=== PATIENT | female | born 1960 | race African-American/Black ===

== ENCOUNTER → 2016-10-04 | Outpatient (CLI) | payer OTHER ==
[~2016-10-04] MED LIST: ASPIRINEC PO; HCTZ PO; LIPITOR PO; TOPROL XL PO
--- NOTE | ~2016-10-04 | US98 ---
[facility] A Service of [facility] RADIOLOGY TEXT RESULTS PATIENT: JONELLE FONSECA LOCATION: [facility] : 60 UNIT #: [id number] AGE: [address]: REY JOYNER MD SEX: F ORDER DR: [id number] [place] [id number] O MR#: [id number] Acc #: [id number] NAME: JONELLE FONSECA : 1960 SEX: F STUDY DATE/TIME: 10/04/2016 15:12 UNIT: [facility] ROOM: STUDY DESCRIPTION: US Pelvic Non-OB Complete Attending Physician: Rey Joyner M.D. Referring Physician: Rey Joyner M.D. Ordering Physician: Rey Joyner M.D. Primary Care Physician: Rey Joyner M.D. MEDICAL IMAGING REPORT This report is preliminary unless electronic signature is present. EXAM Pelvic ultrasound INDICATIONS Lower abdominal and pelvic pain. Uterine fibroids. PROCEDURE Larson-scale and Doppler imaging of the pelvis via transabdominal transvaginal approach COMPARISON STUDIES None. FINDINGS Pelvic structures are not well seen transabdominally. On transvaginal images, the uterus is retroverted and measures 7.4 x 5.6 x 5.5 cm. There is a solid appearing structure in the central uterus that measures 2.6 x 1.9 x 2.7 cm. It is favored to represent a fibroid. The endometrium is not well seen on this study. The ovaries are not well seen. No appreciable adnexal mass. IMPRESSION Pelvic structures are somewhat difficult to see on this study, particularly on the transabdominal images. There is a solid appearing mass in the central uterus measures up to 2.7 cm and is favored to represent a central uterine fibroid. The endometrium is not well seen on the study and the ovaries are not well seen. There is no appreciable adnexal mass or pelvic fluid. Dictated by... Guido Katz M.D. [facility] A Service of [facility] RADIOLOGY TEXT RESULTS PATIENT: JONELLE FONSECA LOCATION: [facility] : 60 UNIT #: [id number] AGE: [address]: REY JOYNER MD SEX: F ORDER DR: THIS IS AN ELECTRONICALLY VERIFIED REPORT Guido Katz M.D. at 10/05/2016 9:30 AM Bárbara TD: 10/04/2016 20:08 JOB #: [id number] MEDICAL IMAGING REPORT Page 1 of 1
== END | disposition home or self-care (01) ==
LOC: SGUS 15:04
DX: D25.9 Leiomyoma of uterus, unspecified (principal)
CPT/HCPCS: 76830; 76856